=== PATIENT | male | born 1995 | race Caucasian/White ===

== ENCOUNTER 2018-05-04 00:08 | Emergency (ER) | payer OTHER, SELFPAY ==
[2018-05-04 00:10] VITALS: BP 136/89; PULSE 76; RESP 16; TEMP 36.7; O2SAT 99; BMI 25.6
--- NOTE | 2018-05-04 00:23 | ED.VISSUMM ---
- ER Visit Summary Date of Service: 05/04/18 Chief Complaint: [Back pain] History of Present Illness: The patient is a 22 M [presents to the emergency department complaint of back pain that started around 7 PM last evening. Patient states that he was at rest when it started. Patient states that his back tends to go into spasm and it is an issue he has been dealing with since the age of 13. Patient states that most of the time he can just tolerate the pain and take ibuprofen but pain significantly worse this time. Patient describes intermittent pains radiating down both legs. He denies any weakness in extremities. He denies any change in bowel or bladder function. Patient denies any trauma. He denies urinary symptoms.] Patient states that he has exacerbations of back pain like this about 10 times per year. Physical Examination: [HEENT-PERRLA, EOMI. Cranial nerves II through XII grossly intact. TMs clear. Mucous membranes moist. No adenopathy. Cardiovascular-regular rate and rhythm without murmur or ectopy Lungs-clear to auscultation, chest wall stable without crepitus or subcu emphysema Abdomen-normoactive bowel sounds, soft, nontender, no rebound or rigidity, no peritoneal signs. Back exam-patient has diffuse tenderness palpation over lumbar paraspinal musculature. No bony tenderness on exam. Negative straight leg raises. Deep tendon reflexes are plus 2 out of 4 bilaterally at the patella and Achilles. Patient has normal L5 extension. Patient has normal sensation. Extremities-intact ?4, normal range of motion, normal pulses, atraumatic] Test Results: [None indicated] Emergency Department Course and Treatment: [Patient was medicated with Dilaudid, Norflex, and Toradol.] Treatment Plan: [Patient will be given a prescription for Flexeril, [place], Naprosyn. Patient advised to follow-up with his primary care physician within next 5-7 days.] Disposition: [Discharged home in stable condition] Impression: [Acute exacerbation of chronic back pain.] This note was generated with [employer] dictation software. It may contain incorrect words, spelling, and punctuation that were not noted in review of the chart prior to signing ED Disposition - Plan for ED Patient: Chief Complaint: Back Referrals: Care Physician,No Primary [Primary Care Provider] -
--- NOTE | 2018-05-04 00:25 | ED.DEP ---
ED Disposition - Plan for ED Patient: Chief Complaint: Back Instructions: ED Neck Back Pain General Prescriptions: Hydrocodone Bitart/Apap 5-325 [[place] 5MG-325MG] 1 tab PO Q4H PRN PRN 2 Days #14 tab PRN Reason: Pain Naproxen [Naprosyn] 500 mg PO BID PRN #20 tab Cyclobenzaprine [Flexeril] 10 mg PO TID PRN #20 tab PRN Reason: Muscle Spasm Referrals: Care Physician,No Primary [Primary Care Provider] - 5-7 Days
[2018-05-04] MEDS: Ketorolac 60 MG/2 ML Vial IM (00:51)
[2018-05-04] MEDS: HYDROmorphone 1 MG/ML Syringe IM (00:51)
[2018-05-04] MEDS: Orphenadrine 60 MG/2 ML Ampul IM (00:51)
[2018-05-04] MEDS: HYDROcodone Bitartrate/Apap 5/325 Tablet PO (00:51)
[2018-05-04 01:36] VITALS: BP 128/75; PULSE 57; RESP 16
--- OUTSIDE RECORDS SUMMARY | 2018-08-05 06:37 | XMS RPT_ITS ---
:1995 Author Organization OH[facility] Care Team Providers Name Role Phone TULIO DUQUE DO Admitting Unavailable TULIO DUQUE DO Attending Unavailable NO, DOCTOR ON Referring Unavailable TULIO DUQUE DO Primary Care Unavailable NO, DOCTOR ON Consulting Unavailable Corie Burgos Attending Unavailable Sid Mack [employer]OOKING [employer]ING [employer]YING SUPERVISOR-C Primary Care Unavailable PROBLEMS PROBLEMS DATE TYPE CONDITION / CODE ATTENDING STATUS SOURCE 05/04/2018 Unknown M54.9 - Corie Burgos Active [facility], [facility] unspecified / Hospital M54.9(ICD-10) Repository PROCEDURES PROCEDURES No Procedure Records FoundRESULTS RESULTS DISCHARGE INSTRUCTION Observed: 05/04/2018 Status: F Source: [place] 12:[address] [facility] [address]IT[address] [facility] Medical Records Department [address] [place] [address] Discharge Instruction 05/04/18 0025 MR#: [id number] Acct: [id number] Name: SAHIL MADERA Rep #: [id number] : 1995 22 From: Corie Burgos DO PCP: Care Physician, No Primary Status: PRE ER ED Disposition - Plan for ED Patient: Chief Complaint: Back Instructions: ED Neck Back Pain General Prescriptions: Hydrocodone Bitart/Apap 5-325 [Pow[place] 5MG-325MG] 1 tab PO Q4H PRN PRN 2 Days #14 tab PRN Reason: Pain Naproxen [Naprosyn] 500 mg PO BID PRN #20 tab Cyclobenzaprine [Flexeril] 10 mg PO TID PRN #20 tab PRN Reason: Muscle Spasm Referrals: Care Physician,No Primary [Primary Care Provider] - 5-7 Days What to do if you have Problems For any increased pain, shortness of breath, bleeding, nausea or vomiting, chest pain, or any unexpected problems, contact your Primary Care Provider. Call [facility] ([phone]) or report to the closest Emergency Room. Call 911 if necessary. 05/04/18 0027 <Electronically signed by Corie Burgos DO> Date Corie Burgos DO Cosigner Signature (If Indicated): Date CC: No Primary Care Physician EMERGENCY DEPARTMENT Observed: 05/04/2018 Status: F Source: [place] SUMMARY 12:[address] [facility] REPOSITORY [facility] Medical Records Department [address] [place] [address] Emergency Department Summary 05/04/18 0023 MR#: [id number] Acct: [id number] Name: SAHIL MADERA Rep #: [id number] : 1995 22 From: Corie Burgos DO PCP: Care Physician, No Primary Status: PRE ER - ER Visit Summary Date of Service: 05/04/18 Chief Complaint: [Back pain] History of Present Illness: The patient is a 22 M [presents to the emergency department complaint of back pain that started around 7 PM last evening. Patient states that he was at rest when it started. Patient states that his back tends to go into spasm and it is an issue he has been dealing with since the age of 13. Patient states that most of the time he can just tolerate the pain and take ibuprofen but pain significantly worse this time. Patient describes intermittent pains radiating down both legs. He denies any weakness in extremities. He denies any change in bowel or bladder function. Patient denies any trauma. He denies urinary symptoms.] Patient states that he has exacerbations of back pain like this about 10 times per year. Physical Examination: [HEENT-PERRLA, EOMI. Cranial nerves II through XII grossly intact. TMs clear. Mucous membranes moist. No adenopathy. Cardiovascular-regular rate and rhythm without murmur or ectopy Lungs-clear to auscultation, chest wall stable without crepitus or subcu emphysema Abdomen-normoactive bowel sounds, soft, nontender, no rebound or rigidity, no peritoneal signs. Back exam-patient has diffuse tenderness palpation over lumbar paraspinal musculature. No bony tenderness on exam. Negative straight leg raises. Deep tendon reflexes are plus 2 out of 4 bilaterally at the patella and Achilles. Patient has normal L5 extension. Patient has normal sensation. Extremities-intact 4, normal range of motion, normal pulses, atraumatic] Test Results: [None indicated] Emergency Department Course and Treatment: [Patient was medicated with Dilaudid, Norflex, and Toradol.] Treatment Plan: [Patient will be given a prescription for Flexeril, [place], Naprosyn. Patient advised to follow-up with his primary care physician within next 5-7 days.] Disposition: [Discharged home in stable condition] Impression: [Acute exacerbation of chronic back pain.] This note was generated with GotaCopy dictation software. It may contain incorrect words, spelling, and punctuation that were not noted in review of the chart prior to signing ED Disposition - Plan for ED Patient: Chief Complaint: Back Referrals: Care Physician,No Primary [Primary Care Provider] - What to do if you have Problems For any increased pain, shortness of breath, bleeding, nausea or vomiting, chest pain, or any unexpected problems, contact your Primary Care Provider. Call [facility] ([phone]) or report to the closest Emergency Room. Call 911 if necessary. 05/04/18 0025 <Electronically signed by Corie Burgos DO> Date Corie Burgos DO Cosigner Signature (If Indicated): Date CC: No Primary Care Physician CHEST 2 VIEWS Observed: 04/07/2018 Status: F Source: [place] 10:44 PM [facility] REPOSITORY [place] [id number] [place], [place] [address] Patient: SAHIL MADERA Phone#: : 1995 Age: 22 Gender: M Pt. Type: ER Account: [id number] Location: 052 Ordering: TULIO DUQUE Exam Date: 04/07/2018/22:32 Family Phys: NO DOCTOR Charge Code: 887873 Physician: [place] Order #: [id number] DLP Dose#: PROCEDURE: X-RAY CHEST 2 VIEWS COMPARISON: None. INDICATIONS: Cough FINDINGS: LUNGS: Normal. No significant pulmonary parenchymal abnormalities. VASCULATURE: Normal. Unremarkable pulmonary vasculature. CARDIAC: Normal. No cardiac silhouette abnormality or cardiomegaly. MEDIASTINUM: Normal. No visible mass or adenopathy. PLEURA: Normal. No effusion or pleural thickening. BONES: Normal. No fracture or visible bony lesion. OTHER: Negative. CONCLUSION: No acute disease. Dictated by: Yadira Mckeon MD on 04/08/2018 at 8:32 Approved by: Yadira Mckeon MD on 04/08/2018 at 8:32 Observed: 04/07/2018 Status: F Source: [place] INFLUENZA VIRUS RAPID 9:40 PM [facility] A/B REPOSITORY INFLUENZA A NEGATIVE INFLUENZA B NEGATIVE INTERNAL NEG QC PASS INTERNAL POS QC PASS EXTERNAL QC DONE? YES A NEGATIVE TEST RESULT DOES NOT EXCLUDE INFECTION WITH INFLUENZA A OR B. THEREFORE, THE RESULTS OBTAINED FROM THIS FLU TEST SHOULD BE USED IN CONJUCTION WITH CLINICAL FINDINGS TO MAKE AN ACCURATE DIAGNOSIS. A POSITIVE RESULT DOES NOT RULE OUT CO-INFECTIONS WITH OTHER PATHOGENS OR IDENTIFY ANY SPECIFIC INFLUENZA A VIRUS SUBTYPE.CO-INFECTION WITH INFLUENZA A AND B IS RARE. IT IS RECOMMENDED THAT DUAL POSITIVE RESULTS BE CONFIRMED BY VIRAL CULTURE OR AN FDA-CLEARED INFLUENZA A AND B MOLECULAR ASSAY. INDIVIDUALS WHO HAVE RECEIVED NASALLY ADMINISTERED INFLUENZA A VACCINE MAY TEST POSITIVE IN COMMERCIALLY AVAILABLE INFLUENZA RAPID DIAGNOSTIC TESTS FOR UP TO THREE DAYS. Performed By: #### [id number] #### [facility],[address] [place] [address] Observed: 04/07/2018 Status: F Source: [place] RAPID STREP 9:35 PM [facility] Rapid Strep POS:GRP A STREP INTERNAL QC PASS EXTERNAL QC DONE? YES Performed By: #### [id number] #### [facility],[address] [place] [address] EMERGENCY REPORT Observed: 04/07/2018 Status: F [facility]51 PM [facility] EMERGENCY ROOM REPORT NAME ACCOUNT SEX AGE ADMIT DISCHARGE PT MED. RECORD# NUMBER DATE DATE TYPE SANTY [id number] Matthew 22 04/07/18 3 SAHIL Dowling [id number] ROOM: ER DATE OF : 1995 DICTATING PHYSICIAN: Tulio Duque TIME SEEN: 9 p.m. HISTORY OF PRESENT ILLNESS: This is a 22-year-old white male complaining of a sore throat and cough. He states he has had the cough since Wednesday, which has been 4 days ago. It has been productive of thick, yellow sputum, and he does admit to some shortness of breath and wheezing. He does have a history of asthma. He woke up this morning with a sore throat and noticed what he describes as a severe sore throat. It hurts to swallow, and when he swallows the pain does shoot up to both ears. His chest hurts when he coughs. He had a fever earlier today of 101.3. He took some Theraflu around 9:30 a.m. and around 1 p.m. He states that does have some Tylenol in it. Primary care physician is [facility] in [place]. PAST MEDICAL HISTORY: Asthma and chronic back pain. 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 PAST SURGICAL HISTORY: Denied. ALLERGIES: No known drug allergies. SOCIAL HISTORY: He is a smoker of approximately a half pack per day. He does admit to occasional alcohol use and does also admit to smoking marijuana. He lives at home with his family. REVIEW OF SYSTEMS: He does admit to fever. He denies any sweats or chills. He does admit to some chest pain with the cough only. He does admit to a cough productive of thick, yellow sputum. He does admit to some wheezing. He does admit to some shortness of breath. He denies any abdominal pain, nausea, vomiting, diarrhea, constipation, melena, hematochezia, headache, numbness, unsteady gait, weakness, neck or back pain, joint pain, skin rash or swelling, hives, hay fever, or swollen glands. He does admit to a sore throat. He denies any ear pain unless he swallows. He does admit to some nasal congestion. Further review of systems is negative. PHYSICAL EXAMINATION: Vital signs: Temperature is 98.8, pulse 97, respirations 18, blood pressure 140/76, and pulse oximetry 98%. The patient is alert and oriented x3. He appears in some mild distress secondary to a sore throat, but he is pleasant and cooperative. He speaks in full sentences. HEENT: Head appears atraumatic. Pupils are Page 1 of 2 SAHIL MADERA Emergency Room Report equal and reactive to light. Red reflexes are intact bilaterally. Extraocular muscles are intact. No conjunctival injection. No scleral icterus or lid edema. Ears: TMs are intact bilaterally. No erythema is noted. No external auditory canal edema or bleeding. Nose exhibits some clear rhinorrhea. He does have some percussible tenderness over the bilateral frontal sinuses. I did not note any tenderness over the bilateral maxillary sinuses. Mouth: Mucous membranes are moist. Some diffuse pharyngeal erythema is noted with tonsillar hypertrophy, but I see no tonsillar exudates. Uvula is midline and elevates. I do see a lot of postnasal drainage. Neck is supple. Trachea is midline. He does have some mild to moderate bilateral anterior cervical lymphadenopathy. No posterior cervical lymphadenopathy. No posterior cervical tenderness or nuchal rigidity noted. Lungs demonstrate coarse breath sounds with some crackles in the right anterior and posterior lung boyd, and he does also have some mild bilateral expiratory wheezing. No accessory muscle use. He speaks in full sentences. CV: Heart rate and rhythm are regular without murmur. Abdomen is soft and nontender with normoactive bowel sounds x4 quadrants. No guarding or rigidity. No rebound. No palpable abdominal masses. No hepatosplenomegaly. Back exhibits no midline or paraspinal region tenderness. No increased paraspinal muscle rigidity. Negative Zack's sign. Extremities: No edema or cyanosis. Peripheral pulses are intact. No motor or sensory deficits are noted. Hand stitcher special machine are strong and symmetric. Skin is warm and dry. No diaphoresis or rash. Neurologic examination shows the patient to be alert and oriented x4. No motor or sensory deficits are noted. Normal speech. No hot potato voice. No conversational dyspnea. EMERGENCY DEPARTMENT COURSE AND TREATMENT: Presently, we will give the patient a unit dose albuterol aerosol treatment since he does have a history of asthma and he is wheezing. We will get a two-view chest x- ray since he does have a history of asthma and this history of being born with an underdeveloped left lung. He feels warm to me, almost like he is running a fever, although his vitals in triage showed him to be afebrile. I did get a rapid strep swab, which I did myself, and then I ordered an influenza swab as well. I am going to give him some ibuprofen here and then we will reevaluate. Dictated By: Tulio Duque DO 04/07/18 21:44 JOB #: [id number] Transcribed By: pasha 04/07/18 22:01 Electronically signed by: E-Sign: Dr. Tulio Duque D.O. 04/15/18 21:35 Page 2 of 2 SAHIL MADERA Emergency Room Report EMERGENCY REPORT Observed: 04/07/2018 Status: F Source: [facility] 8:51 PM [facility] EMERGENCY ROOM REPORT NAME ACCOUNT SEX AGE ADMIT DISCHARGE PT MED. RECORD# NUMBER DATE DATE TYPE SANTY [id number] M 22 04/07/18 04/07/18 3 SAHIL Dowling [id number] ROOM: ER DATE OF : 1995 DICTATING PHYSICIAN: Tulio Duque ADDENDUM DIAGNOSTIC DATA: Flu swab was negative, but the rapid strep came back positive for strep. EMERGENCY DEPARTMENT COURSE AND TREATMENT: The patient was placed on Zithromax 500 mg one p.o. daily, dispense #7 with no refill, and he was given a dose here prior to discharge. Also, ibuprofen 800 mg one p.o. every 8 hours as needed for pain/fever, dispense #20 with no refill. The patient is to rest, encourage fluids, take the medication as prescribed, and follow up with his primary care physician at [facility] in [place] in 3 to 5 days for evaluation. If his symptoms become worse or any other problems develop, return here to the Emergency Department. Since he does have a history of asthma, I also gave him a prescription for an albuterol inhaler with AeroChamber 2 puffs every 6 hours as needed, dispense #1 with one refill. I did look at the patient's chest x-ray, the two-view chest x-ray, and I see no pneumonia. The patient is advised to take the medication as prescribed. If his symptoms become worse or any other problems develop, return here to the Emergency Department. The patient was discharged in a clinically stable condition. Nurse's notes reviewed. DIAGNOSES: 1. Strep pharyngitis. 2. Bronchitis. Dictated By: Tulio Duque DO 04/07/18 22:42 JOB #: [id number] Transcribed By: pasha 04/08/18 06:14 Electronically signed by: E-Sign: Dr. Tulio Duque D.O. 04/15/18 21:35 Page 1 of 1 SAHIL MADERA Emergency Room Report CBC Collected: 02/08/2018 Status: F Source: [facility] 1:15 PM [facility] REPOSITORY TYPE CODE TESTS RESULT OUT OF REFERENCE UNITS RANGE LAB WBC(LOINC) 4.50-10.80 10 3/mcL WBC 8.90 LAB RBCCT(LOINC 4.50-6.00 10 6/mcL ) RBC 5.60 LAB HGB(LOINC) 13.0-17.5 G/dL Hgb 17.0 LAB HCT(LOINC) 40.0-52.0 % Hct 49.9 LAB MCV(LOINC) 81.0-100.0 fL MCV 89.0 LAB MCH(LOINC) 27.0-33.0 pg MCH 30.3 LAB MCHC(LOINC) 32.0-36.0 G/dL MCHC 34.1 LAB RDW(LOINC) 11.5-15.5 % RDW 13.0 LAB PLT(LOINC) 150-450 10 3/mcL Platelet 229 LAB MPV(LOINC) 6.4-10.5 fL High MPV 10.8 Performed By: #### CBC, ADIFF, ANEU, CMP, GFR, TSH, LIPID, BILAD, A1C #### [address] [address] .AUTO DIFF Collected: 02/08/2018 Status: F Source: [facility] 1:15 PM [facility] REPOSITORY TYPE CODE TESTS RESULT OUT OF REFERENCE UNITS RANGE LAB EDDI(LOINC) 50.0-75.0 % Neutrophil % 66.8 LAB LYM(LOINC) 20.0-40.0 % Lymphocyte % 22.2 LAB MON(LOINC) 2.0-13.0 % Monocyte % 8.0 LAB EO(LOINC) 0.0-6.0 % Eosinophil % 2.5 LAB BAS(LOINC) 0.0-2.5 % Basophil % 0.5 LAB ABLYM(LOIN 0.90-4.32 10 3/mcL C) Lymphocyte, 2.00 Absolute LAB ISHA(LOINC 0.09-1.40 10 3/mcL ) Monocyte, 0.70 Absolute LAB AEOS(LOINC 0.00-0.65 10 3/mcL ) Eosinophil, 0.20 Absolute LAB ABAS(LOINC 0.00-0.27 10 3/mcL ) Basophil, 0.00 Absolute Performed By: #### CBC, ADIFF, ANEU, CMP, GFR, TSH, LIPID, BILAD, A1C #### [place] [id number] .NEUABS Collected: 02/08/2018 Status: F Source: [facility] 1:15 PM [facility] REPOSITORY TYPE CODE TESTS RESULT OUT OF REFERENCE UNITS RANGE LAB ANEU(LOINC) 2.25-8.10 10 3/mcL Neutrophil, 5.90 Absolute Performed By: #### CBC, ADIFF, ANEU, CMP, GFR, TSH, LIPID, BILAD, A1C #### [address] [address] CMP Collected: 02/08/2018 Status: F Source: [facility] 1:15 PM [facility] REPOSITORY TYPE CODE TESTS RESULT OUT OF REFERENCE UNITS RANGE LAB GLU(LOINC) 70-110 mg/dL Glucose Level 85 LAB NA(LOINC) 136-145 mEq/L Sodium Level 141 LAB K(LOINC) 3.5-5.0 mEq/L Potassium Level 4.8 LAB CL(LOINC) 98-110 mEq/L Chloride 103 LAB CO2(LOINC) 22-32 mEq/L CO2 27 LAB EBAL(LOINC 4.0-15.0 mEq/L ) Electrolyte Balance 11.0 LAB BUN(LOINC) 8.0-22.0 mg/dL BUN 17.0 LAB CRE(LOINC) 0.60-1.40 mg/dL Creatinine Lvl (s) 0.98 LAB BC(LOINC) 10.0-22.0 ratio BUN/Creatinine 17.3 Ratio LAB CA(LOINC) 8.4-10.1 mg/dL Calcium Lvl 9.2 LAB PROT(LOINC 6.0-8.5 G/dL ) Total Protein 8.0 LAB ALB(LOINC) 3.2-4.8 G/dL Albumin Level 4.6 LAB GLB(LOINC) 1.5-3.8 G/dL Globulin 3.4 LAB AG(LOINC) 0.9-1.6 ratio A/G Ratio 1.4 LAB BILT(LOINC 0.2-1.2 mg/dL ) Bili Total 0.6 LAB AP(LOINC) 38-126 U/L Alk Phos 72 LAB AST(LOINC) 8-34 U/L AST/SGOT 17 LAB ALT(LOINC) 12-55 U/L ALT/SGPT 32 Performed By: #### CBC, ADIFF, ANEU, CMP, GFR, TSH, LIPID, BILAD, A1C #### [place] [address] .GFR Collected: 02/08/2018 Status: F Source: [facility] 1:15 PM [facility] TYPE CODE TESTS RESULT OUT OF REFERENCE UNITS RANGE LAB GFRAA(LOINC ml/min/1.73 ) sqm GFR >60 Mauritian Result Comment: GFR Population mean for , Non- Americans Ages 20-29 = 116 mL/min/1.73 sq.m. Ages 30-39 = 107 mL/min/1.73 sq.m. Ages 40-49 = 99 mL/min/1.73 sq.m. Ages 50-59 = 93 mL/min/1.73 sq.m. Ages 60-69 = 85 mL/min/1.73 sq.m. Ages 70+ = 75 mL/min/1.73 sq.m. Chronic Kidney Disease: Less than 60 mL/min/1.73 square meters End Stage Renal Disease: Less than 15 mL/min/1.73 square meters LAB GFRNO(LOINC) ml/min/1.73sqm GFR Non- >60 Result Comment: GFR Population mean for , Non- Americans Ages 20-29 = 116 mL/min/1.73 sq.m. Ages 30-39 = 107 mL/min/1.73 sq.m. Ages 40-49 = 99 mL/min/1.73 sq.m. Ages 50-59 = 93 mL/min/1.73 sq.m. Ages 60-69 = 85 mL/min/1.73 sq.m. Ages 70+ = 75 mL/min/1.73 sq.m. Chronic Kidney Disease: Less than 60 mL/min/1.73 square meters End Stage Renal Disease: Less than 15 mL/min/1.73 square meters Performed By: #### CBC, ADIFF, ANEU, CMP, GFR, TSH, LIPID, BILAD, A1C #### [address] [address] TSH Collected: 02/08/2018 Status: F Source: [facility] 1:15 PM [facility] REPOSITORY TYPE CODE TESTS RESULT OUT OF RANGE REFERENCE UNITS LAB TSH(LOINC) 0.360-3.740 mcIU/mL TSH 1.030 Result Comment: Please note as of 11/28/16 new pediatric reference intervals were added for this test. Performed By: #### CBC, ADIFF, ANEU, CMP, GFR, TSH, LIPID, BILAD, A1C #### [address] [address] LIPID Collected: 02/08/2018 Status: F Source: [place] [facility] 1:15 PM [facility] REPOSITORY TYPE CODE TESTS RESULT OUT OF REFERENCE UNITS RANGE LAB CHOL(LOINC 50-199 mg/dL ) Cholesterol 189 Result Comment: Cholesterol Reference Interval: Less than 200 Desirable 200-239 Borderline high risk 240 and above High risk LAB TRIG(LOINC) 3-149 mg/dL Triglycerides 106 Result Comment: Triglyceride Reference Interval: Less than 150 Normal 150-199 Borderline high risk 200-499 High risk 500 or higher Very high risk LAB HD(LOINC) 40-59 mg/dL HDL Low Cholesterol 39 Result Comment: HDL Reference Interval: Less than 40 Low - high risk 60 or above Optimal/lowers risk LAB LDL(LOINC) 0-129 mg/dL LDL Cholesterol 129 Result Comment: LDL is a calculated result and requires a 12-hr fast. LDL Reference Interval: Less than 100 Optimal 100-129 Near or above optimal 130-159 Borderline high risk 160-189 High risk 190 and above Very high risk Performed By: #### CBC, ADIFF, ANEU, CMP, GFR, TSH, LIPID, BILAD, A1C #### [address] [address] BILAD Collected: 02/08/2018 Status: F Source: [facility] 1:15 PM [facility] REPOSITORY TYPE CODE TESTS RESULT OUT OF REFERENCE UNITS RANGE LAB BILAD(LOINC 0.0-0.4 mg/dL ) Bili Direct 0.1 Performed By: #### CBC, ADIFF, ANEU, CMP, GFR, TSH, LIPID, BILAD, A1C #### [place] [address] A1C Collected: 02/08/2018 Status: F Source: [facility] 1:15 PM [facility] REPOSITORY TYPE CODE TESTS RESULT OUT OF RANGE REFERENCE UNITS LAB A1C(LOINC) 4.0-6.0 % Hgb A1c 5.1 Performed By: #### CBC, ADIFF, ANEU, CMP, GFR, TSH, LIPID, BILAD, A1C #### [place] [id number] ALLERGIES ALLERGIES DATE TYPE / CODE NAME / CODE REACTION SEVERITY SOURCE 05/04/2018 Drug No Known Unknown [facility] Allergy/4160 Allergies/F00 [facility] 15831(SNOMED [id number](RXNOR Repository CT) M) ENCOUNTERS ENCOUNTERS ADMIT/DISCHARGE ACCOUNT ADMITTING ENCOUNTER LOCATION SOURCE NUMBER CLASS 05/04/2018/ [id number] Emergency [facility] [address] ing:ED Repository 04/07/2018/ [id number] TULIO DUQUE Emergency [facility] [place] [address] 8 DO oom: ERBed: D [facility] Repository PAYERS PAYERS ENCOUNTER GUARANTOR PAYER SUBSCRIBER SOURCE 05/04/2018 Sahil Castaneda Primary Sahil Vasquez [facility] Insurance:AULTCAREPol ReidenbachDOB: [address] icy Number: [id number] [address]Fen: [phone] Repository [phone] (HP) Date:[id number] [address] [place] [phone]: 05/04/2018 Secondary NOT GIVENUNK [place] Insurance:SELF PAY [facility] Hospital Number: Effective Repository Date:2018-05-04 04/07/2018 SAHIL Dowling Primary SAHIL Chaparro REIDENBACHDOB: Insurance:AULTCARE-O/ REIDENBACHDOB: [facility] [id number] BOX PPolicy Number: [id number] [place] [address] [id number] [address] [place], [place] [address]E RDBIG Repository [address]Ceb: [phone] Date:Plan Name:Pierre POLO Ak [phone] () [address] [place] [id number]:
== END 2018-05-04 01:36 | disposition home or self-care (01) ==
LOC: ED 00:42
PROVIDERS: Emergency Provider Emergency Medicine; Family Provider Nurse Practitioner Family; PCP Nurse Practitioner Family
DX: M54.9 Dorsalgia, unspecified (principal); G89.29 Other chronic pain; Z72.0 Tobacco use
CPT/HCPCS: 96372; 99282